=== PATIENT | male | born 2000 | race Two or more races ===

== ENCOUNTER → 2024-08-13 14:12 | Outpatient (REF) | payer OTHER, SELFPAY ==
[2024-08-13 15:53] LABS: Hemoglobin 13.6 g/dL (13.0-18.0); Mean Corp Hgb Conc. 33.2 g/dL (33.0-37.0); Mean Corpuscular Volume 90.5 fL (80.0-94.0); Mean Platelet Volume 10.9 fL (7.4-10.4); Platelet Count 316 10^3/uL (130-400); Red Blood Cell Count 4.53 10^6/uL (4.70-6.10); Red Cell Dist. Width 12.8 % (11.5-14.5); White Blood Cell Count 11.9 10^3/uL (4.8-10.8)
[2024-08-13 16:00] LABS: ALT (SGPT) 57 U/L (0-50); AST (SGOT) 30 U/L (17-59); Albumin 4.8 g/dl (3.5-5.0); Alkaline Phosphatase 70 U/L (38-126); Blood Urea Nitrogen 12 mg/dl (9-20); Calcium 9.7 mg/dl (8.4-10.2); Carbon Dioxide 27 mmol/L (22-30); Chloride 103 mmol/L (98-107); Glucose 95 mg/dl (70-99); Potassium 4.2 mmol/L (3.5-5.1); Sodium 142 mmol/L (135-145); Total Bilirubin 0.9 mg/dl (0.2-1.3); Total Protein 8.2 g/dl (6.3-8.2); eGFR > 60.00
[2024-08-13 16:16] LABS: Free T4 0.98 ng/dl (0.78-2.19)
[2024-08-13 16:30] LABS: TSH 2.88 uIU/ml (0.47-4.68)
[2024-08-13 16:49] LABS: Vitamin B12 474 pg/ml (239-931)
[2024-08-14 09:11] LABS: Glycohemoglobin (HgbA1c) 5.9 % (4.0-5.6)
[2024-08-15 00:01] LABS: IgA 393 mg/dl (70-400)
[2024-08-15 16:45] LABS: Endomysial IgA Antibody Titer <1:10 (<1:10)
== END ==
LOC: REG 14:12
PROVIDERS: ATTENDING PHYSICIAN Nurse Practitioner Adult Health
DX: Z00.00 Encounter for general adult medical examination without abnormal findings (principal); Z83.49 Family history of other endocrine, nutritional and metabolic diseases; Z83.3 Family history of diabetes mellitus
CPT/HCPCS: 36415; 80053; 82607; 82784; 83036; 83516; 84439; 84443; 85027; 86231

== ENCOUNTER → 2025-04-19 11:08 | Outpatient (REF) | payer OTHER, SELFPAY ==
[2025-04-19 11:54] LABS: Hematocrit 42.1 % (39.0-52.0); Hemoglobin 13.9 g/dL (13.0-18.0); Mean Corp Hgb Conc. 33.0 g/dL (33.0-37.0); Mean Corpuscular Volume 87.2 fL (80.0-94.0); Platelet Count 304 10^3/uL (130-400); Red Cell Dist. Width 12.9 % (11.5-14.5)
[2025-04-19 12:43] LABS: Glycohemoglobin (HgbA1c) 6.0 % (4.0-5.9)
== END ==
LOC: REG 11:08
PROVIDERS: ATTENDING PHYSICIAN Nurse Practitioner Adult Health
DX: R73.03 Prediabetes (principal); R74.8 Abnormal levels of other serum enzymes
CPT/HCPCS: 36415; 83036; 85027